=== PATIENT | male | born 1970 | race Two or more races ===

== ENCOUNTER 2016-08-14 02:13 | Emergency (ER) | payer MEDICAID, OTHER ==
[~2016-08-14] VITALS: Ht 170.2 cm; Wt 72.6 kg
[2016-08-14 07:38] VITALS: BP 107/77
== END 2016-08-14 08:00 | disposition home or self-care (01) ==
LOC: ER 02:16
DX: M77.11 Lateral epicondylitis, right elbow (principal); Z88.8 Allergy status to other drugs, medicaments and biological substances; J45.909 Unspecified asthma, uncomplicated; I10 Essential (primary) hypertension; F17.210 Nicotine dependence, cigarettes, uncomplicated; E11.8 Type 2 diabetes mellitus with unspecified complications; Z79.4 Long term (current) use of insulin; R20.0 Anesthesia of skin
CPT/HCPCS: 73070

== ENCOUNTER 2016-08-20 13:12 | Emergency (ER) | payer OTHER ==
[~2016-08-20] VITALS: Ht 170.2 cm; Wt 75.7 kg
[2016-08-20 14:29] VITALS: BP 129/80
== END 2016-08-20 14:38 | disposition home or self-care (01) ==
LOC: ER 13:35
DX: G89.29 Other chronic pain (principal); M54.5 Low back pain; Z76.0 Encounter for issue of repeat prescription; E11.9 Type 2 diabetes mellitus without complications; J45.909 Unspecified asthma, uncomplicated; I10 Essential (primary) hypertension; F17.210 Nicotine dependence, cigarettes, uncomplicated; Z88.6 Allergy status to analgesic agent; Z88.8 Allergy status to other drugs, medicaments and biological substances

== ENCOUNTER 2016-08-26 03:15 | Emergency (ER) | payer OTHER ==
[~2016-08-26] VITALS: Ht 167.6 cm; Wt 74.8 kg
[2016-08-26 04:09] VITALS: BP 136/72
[2016-08-26] MEDS ORDERED: HYDROcodone-ACET 10/325MG TAB PO ONE (04:15)
== END 2016-08-26 04:17 | disposition home or self-care (01) ==
LOC: ER 03:18
DX: G89.29 Other chronic pain (principal); M77.9 Enthesopathy, unspecified; J45.909 Unspecified asthma, uncomplicated; E11.9 Type 2 diabetes mellitus without complications; I10 Essential (primary) hypertension; F17.210 Nicotine dependence, cigarettes, uncomplicated; Z76.0 Encounter for issue of repeat prescription; Z88.6 Allergy status to analgesic agent; Z88.2 Allergy status to sulfonamides